=== PATIENT | female | born 1985 | race Caucasian/White ===

== ENCOUNTER 2021-01-16 12:31 | Day surgery (SDCO) | payer OTHER ==
[2021-01-16 13:10] LABS: HCT 36.2 % (37.0-47.0); HGB 12.3 g/dl (12.5-16.0); MCH 30.2 pg (25.0-31.0); MCV 88.9 fL (78.0-100.0); MPV 11.5 fL (6.0-9.5); RBC 4.07 M/uL (4.20-5.40); RDW 13.6 % (11.5-14.0); WBC 8.4 K/uL (4.0-10.5)
[2021-01-16 13:12] LABS: BILIRUBIN NEGATIVE (NEGATIVE); BLOOD NEGATIVE Ery/uL (NEGATIVE); COLOR YELLOW (YELLOW); GLUCOSE (U) NORMAL (NORMAL); LEUKOCYTES NEGATIVE Leu/uL (NEGATIVE); NITRITE NEGATIVE (NEGATIVE); PROTEIN 1+ mg/dL (NEGATIVE); SPECIFIC GRAVITY >=1.030 (1.001-1.030); UROBILINOGEN 0.2 mg/dL (0.2-1.0)
[2021-01-16 13:13] LABS: CLARITY SLIGHTLY HAZY (CLEAR)
[2021-01-16 13:17] LABS: BACTERIA 3+
[2021-01-16 13:38] LABS: ALBUMIN 2.6 g/dL (3.4-5.0); BILIRUBIN - TOTAL 0.3 mg/dL (0.2-1.0); BUN/CREAT RATIO (CALC) 23.4 RATIO; CREATININE 0.64 mg/dL (0.51-0.95); GLOBULIN (CALCULATION) 4.9 g/dL; POTASSIUM 3.8 mmol/L (3.5-5.1); TOTAL PROTEIN 7.5 g/dL (6.4-8.2)
[2021-01-16 13:43] LABS: URINE CREATININE 31.19 mg/dL (29.00-226.00)
[2021-01-16 13:44] LABS: URINE TOTAL PROTEIN-RANDOM < 6.0 mg/dL (<11.9)
--- NOTE | 2021-01-16 16:56 | NUR ---
PT LIVES WITH SPOUSE; INDEPENDENT WITH CARE
== END 2021-01-16 19:03 | disposition other institution (70) ==
LOC: FOB 12:31
PROVIDERS: Obstetrics & Gynecology; ADMIT Obstetrics & Gynecology
DX: O16.3 Unspecified maternal hypertension, third trimester (principal); Z3A.32 32 weeks gestation of pregnancy
CPT/HCPCS: 36415; 80053; 81001; 81003; 82570; 83615; 84156; 84550; 86850; 86900; 86901; G0378; J0360; J0610; J0702; J3475; J3490; J7120